=== PATIENT | male | born 1980 | race Caucasian/White ===

== ENCOUNTER 2017-08-17 19:58 | Emergency (ER) | payer OTHER ==
[~2017-08-17] VITALS: Ht 175.3 cm; Wt 108.9 kg
[2017-08-17 21:11] LABS: BASOPHILS ABSOLUTE AUTO 0.03 K/mm3 (0.00-0.23); BASOPHILS PERCENT AUTO 0 % (0-2); EOSINOPHILS ABSOLUTE AUTO 0.01 K/mm3 (0.00-0.68); EOSINOPHILS PERCENT AUTO 0 % (0-6); Hemoglobin 16.3 g/dL (13.5-17.5); IMMATURE GRAN ABSOLUTE AUTO 0.01 K/mm3 (0.00-0.10); IMMATURE GRAN PERCENT AUTO 0 % (0-1); LYMPHOCYTES ABSOLUTE AUTO 1.59 K/mm3 (0.84-5.20); LYMPHOCYTES PERCENT AUTO 16 % (21-46); MONOCYTES ABSOLUTE AUTO 1.05 K/mm3 (0.16-1.47); MONOCYTES PERCENT AUTO 10 % (4-13); Mean Corpuscular HGB 30.8 pg (26.0-34.0); Mean Corpuscular HGB Conc 36.2 g/dL (31.5-36.5); Mean Corpuscular Volume 85 fL (80-100); NEUTROPHILS ABSOLUTE AUTO 7.56 K/mm3 (1.96-9.15); NEUTROPHILS PERCENT AUTO 74 % (41-73); Platelet Count 187 K/mm3 (150-400); RDW Coefficient Variation 12.2 % (11.7-14.2); RDW Standard Deviation 37.7 fL (35.1-46.3); White Blood Cell Count 10.25 K/mm3 (4.00-11.30)
[2017-08-17 21:25] LABS: Calcium, Ionized (POC) 1.03 mmol/L (1.10-1.46); Chloride (POC) 101 mmol/L (98-108); Glucose (ISTAT POC) 111 mg/dL (70-99); Hemoglobin (POC) 15.6 g/dL (13.5-17.5); Potassium (POC) 2.8 mmol/L (3.5-5.5); Sodium (POC) 139 mmol/L (135-148); Total CO2 (POC) 26 mmol/L (21-32)
[2017-08-17 21:28] LABS: Alanine Aminotransfer (ALT/SGP 57 U/L (12-78); Alk Phos 82 U/L (50-136); Anion Gap 11 mmol/L (6-16); Aspartate Aminotrans (AST/SGOT 40 U/L (12-37); Bilirubin, Total 1.2 mg/dL (0.1-1.0); Blood Urea Nitrogen 13 mg/dL (8-24); Bun/Creatinine Ratio 14.4 (12.0-20.0); CO2, Blood 23 mmol/L (21-32); Calcium, Blood 9.3 mg/dL (8.5-10.1); Chloride, Blood 104 mmol/L (98-108); Creatinine, Blood 0.91 mg/dL (0.60-1.20); Globulin, Blood 3.9 g/dL (2.2-4.0); Glomerular Filtration Rate >60 (60-); Glucose, Blood 107 mg/dL (70-99); Potassium, Blood 2.9 mmol/L (3.5-5.5); Sodium, Blood 138 mmol/L (136-145); Total Protein, Blood 7.9 g/dL (6.4-8.2)
== END 2017-08-18 01:11 | disposition short-term general hospital (02) ==
LOC: ER 19:58
PROVIDERS: Nurse Practitioner Family
DX: J36 Peritonsillar abscess (principal); I10 Essential (primary) hypertension; F17.220 Nicotine dependence, chewing tobacco, uncomplicated; Z79.899 Other long term (current) drug therapy
CPT/HCPCS: 36415; 70491; 80047; 80053; 85014; 85025; 96365; 96375; 99285; J1100; J2270; J7030; Q9967

== ENCOUNTER → 2017-08-17 | Outpatient (CLI) | payer OTHER ==
[~2017-08-17] MED LIST: AMOCLA875 PO; CODGUAEL PO; CRUTCH2 XX; HYDACE25S PR; HYDACE5 PO; Hydrochlorothia25 MG PO; IBUP800 PO; LISI5 PO; Lopressor 25 mg25 MG PO; METO25ER PO; MICROZIDE12.5 MG; Prinivil10 MG PO
== END | disposition home or self-care (01) ==
LOC: LAB SHORT 10:13
DX: J02.9 Acute pharyngitis, unspecified (principal)
CPT/HCPCS: 87070